=== PATIENT | male | born 1965 | race African-American/Black ===

== ENCOUNTER 2023-08-12 11:10 | Day surgery (SDC) | payer BC ==
[2023-08-12] MEDS ORDERED: BUPIVACAINE 0.5% VIAL IJ ONE (11:11)
[2023-08-12] MEDS ORDERED: Decadron 4 MG INJ IV ONE (11:11)
[2023-08-12] MEDS ORDERED: XYLOCAINE-MPF 1% 5ML SDV IJ ONE (11:11)
[2023-08-12] MEDS ORDERED: Depo-Medrol 40 MG/ML IM ONE (11:11)
[2023-08-12] MEDS ORDERED: DIPRIVAN 200 MG/20 ML IV ONE (12:46)
[2023-08-12] MEDS ORDERED: Lactated Ringers 1,000 ML IV ONE (13:12)
--- NOTE | 2023-08-12 13:29 | XRAY ---
Indication: Right piriformis and right greater trochanter bursa injection. Intraoperative fluoroscopy provided for 12 seconds. 3 digital spot image obtained prone submitted for interpretation demonstrates posterior needle tip projecting over right piriformis. Second needle tip lateral to right greater trochanter. Small amount of contrast injected for both needle tip placement. Correlate with intraoperative findings/report.
--- NOTE | 2023-08-12 15:00 | XRAY ---
12 seconds of fluoroscopy was used in surgery for a right greater trochanteric bursa and piriformis injection.
== END 2023-08-12 13:10 | disposition home or self-care (01) ==
LOC: SDC-PAIN 11:10
PROVIDERS: ATTEND Psychiatry & Neurology Pain Medicine
DX: M70.61 Trochanteric bursitis, right hip (principal); M79.18 Myalgia, other site
CPT/HCPCS: 20552; 20610; 73501; 77002; J1010; J1100; J2704; Q9966

== ENCOUNTER 2024-03-23 15:05 | Day surgery (SDC) | payer BC ==
[2024-03-23] MEDS ORDERED: BUPIVACAINE 0.5% VIAL IJ ONE (15:06)
[2024-03-23] MEDS ORDERED: LIDOCAINE HCL 1% AMPUL 5 ML IJ ONE (15:06)
[2024-03-23] MEDS ORDERED: Depo-Medrol 40 MG/ML IM ONE (15:06)
--- NOTE | 2024-03-23 21:05 | XRAY ---
Indication: Right hip injection. Intraoperative fluoroscopy provided for 18 seconds. Single digital spot image submitted for interpretation demonstrates needle tip projecting lateral to right femur neck. Small amount of contrast injected for needle tip placement. Correlate with intraoperative findings/report.
--- NOTE | 2024-03-24 08:40 | XRAY ---
18 seconds of fluoroscopy used in surgery for a right intra-articular hip injection.
== END 2024-03-23 18:10 | disposition home or self-care (01) ==
LOC: SDC-PAIN 15:05
PROVIDERS: ATTEND Psychiatry & Neurology Pain Medicine
DX: M16.11 Unilateral primary osteoarthritis, right hip (principal)
CPT/HCPCS: 73501; 77002